=== PATIENT | male | born 1945 | race Caucasian/White ===

== ENCOUNTER 2017-06-04 16:01 | Outpatient (CLI) | payer BC ==
--- NOTE | 2017-06-04 17:10 | RAD ---
TWO VIEWS CHEST: 06/04/17 HISTORY: Nasal sinus drainage, cough. PA and lateral views of the chest is obtained on 06/04/17. Two views chest demonstrate the lungs to be well aerated. No evidence of active intrathoracic disea se seen. No evidence of effusions, pneumonia or pneumothorax seen. IMPRESSION: Normal two views chest. POS: [facility]
== END 2017-06-04 16:02 | disposition home or self-care (01) ==
LOC: MADRAD 16:01
PROVIDERS: ATTEND Family Medicine
DX: R06.02 Shortness of breath (principal)
CPT/HCPCS: 71020